=== PATIENT | female | born 1940 | race Caucasian/White ===

== ENCOUNTER 2020-10-15 15:54 | Inpatient (IN) | payer OTHER ==
[~2020-10-15] VITALS: Ht 152.4 cm; Wt 69.4 kg
[2020-10-15] MEDS ORDERED: COZAAR100 MG (16:07)
[2020-10-15] MEDS ORDERED: LEVOTHYROXINE25 MCG (16:08)
[2020-10-15] MEDS ORDERED: ELIQUIS5 MG (16:08)
[2020-10-15] MEDS ORDERED: CARVEDILOL25 MG (16:08)
[2020-10-15] MEDS ORDERED: CRESTOR20 MG (16:08)
[2020-10-15] MEDS ORDERED: RAYOS2 MG (16:09)
[2020-10-15] MEDS ORDERED: ISOSORBIDE MONO60 MG (16:09)
[2020-10-15] MEDS ORDERED: BUMEX 1 MG (16:09)
--- NOTE | 2020-10-15 16:10 | NUR ---
SE REDCIBE PTE ALERTA Y ORIENTADA X3,REFIERE TENER DOLOR ABDOMINAL,REFIERE QUE LE DIAGNOSTICARON PANCREATITIS.
--- NOTE | 2020-10-15 17:10 | NUR ---
MS JACKSONGO ORIENTA PTE SOBRE TX MEDICO EL CUAL REFIERE ENTENDER.SE LE EXTRAEN MUESTRAS BAJO MEDIDAS ASEPTICAS.SE CANALIZA Y SE ADMINISTRAN MEDICAMENTOS,SE NOTIFICA SONOGRAMA PENDIENTE.SE ORIENTA SOBRE DIETA NPO.
--- NOTE | 2020-10-15 22:25 | NUR ---
PACIENTE FEMINA DE 80 ANOS DE EDAD UBICADA EN AREA DE CHEST PAIN POR DOLOR ABDOMINAL Y FALLO RENAL. AL MOMENTO LA MISMA ESTA EN COMPANIA DE FAMILIAR. PACIENTE AMBULA SIN DIFICULTAD Y SE OBSERVA ESTABLE DENTRO DE QUIGLEY CONDICION. LA MISMA FUE MANEJADA POR ANIBAL DE EMERGENCIAS, SE LE REALIZARON MUESTRAS DE NANCY SONOGRAMA Y ADMINISTRACION DE MEDICAMENTOS. AL MOMENTO PACIENTE QUEDA PENDIENTE DE CONSULTA CON MEDICINA INTERNA, MUESTRA DE NANCY A LAS 6:00AM Y MONITOREO DEL ESTADO DE LA MISMA.
--- NOTE | 2020-10-15 23:43 | NUR ---
SE RECIBE PTE FEMRNINA ALERTA Y ORIENTADA X3,ACOMPANADA DE FAMILIAR,SE MANTIENE CONECTADA A MONITOR CARDIACO COINSTANTE Y OXIMETRIA CONTINUA,SE REALIZAN S/V,SE MANTIENE IVF PATENTE AREA NEDA DE EDEMA Y ENROJECIMIENTO, PENDIENTE A MUESTRAS NADYA LABORATORIO A REALIZARSE A LAS 6AM,SE MANTIENE EN OBSERVACION POR CAMBIOS.
--- NOTE | 2020-10-16 05:39 | NUR ---
SE LILIYA FLORES Y S ENVIAN A LABORATORIO
--- NOTE | 2020-10-16 07:36 | NUR ---
SE RECIBE PTE DEL TURNO ANTERIOR, ALERTA Y ORIENTADA X 3 ESFERAS, UBICADA EN CAMA NIVEL MAS BAJO, COHN DE IDENTIFICACION Y BARANDAS ELEVADAS POR PRECAUCION, CONECTADA A MONITOR CARDIACO Y OXIMETRIA DE PULSO. EN COMPANIA DE FAMILIAR. SE OBSERVA CON BUEN PATRON RESPIRATORIO, AL MOMENTO SATURANDO 96% JOSEY OXIMETRO DE PULSO. PIEL TIBIA AL TACTO. IV EN ANTEBRAZO LT #20 PATENTE Y NEDA DE EDEMA O ERITEMA. PENDIENTE A RE EVALUACION DEL DR E RUSSO. SE MANTIENE BAJO OBSERVACION, EN CAMA NIVEL MAS BAJO, CONECTADA A MONITOR CARDIACO Y OXIMETRIA DE PULSO.
--- NOTE | 2020-10-16 10:53 | NUR ---
SE OBSERVA PTE CON PULSO IRREGULQAR, SE REALIZA EKG Y SE NOTIFICA A DR E RUSSO.
[2020-11-01] MEDS ORDERED: CARVEDILOL25 MG PO (09:58)
[2020-11-01] MEDS ORDERED: ISOSORBIDE MONO30 MG PO (09:58)
[2020-11-01] MEDS ORDERED: LASIX20 MG PO (09:58)
[2020-11-01] MEDS ORDERED: ELIQUIS2.5 MG PO (09:58)
== END 2020-11-01 14:54 | disposition home or self-care (01) | DRG 438 ==
LOC: ER 15:54 → MEDJ 10-16 13:05
PROVIDERS: ADMIT Internal Medicine; ATTEND Internal Medicine
PROC: B24BZZZ Ultrasonography of Heart with Aorta (ICD-10-PCS; principal; 2020-10-16)
PROC: BW21ZZZ Computerized Tomography (CT Scan) of Abdomen and Pelvis (ICD-10-PCS; 2020-10-16)
PROC: BT43ZZZ Ultrasonography of Bilateral Kidneys (ICD-10-PCS; 2020-10-23)
DX: K85.80 Other acute pancreatitis without necrosis or infection (principal); N17.0 Acute kidney failure with tubular necrosis; K80.10 Calculus of gallbladder with chronic cholecystitis without obstruction; I48.20 Chronic atrial fibrillation, unspecified; I13.0 Hypertensive heart and chronic kidney disease with heart failure and stage 1 through stage 4 chronic kidney disease, or unspecified chronic kidney disease; I50.22 Chronic systolic (congestive) heart failure; I25.10 Atherosclerotic heart disease of native coronary artery without angina pectoris; E03.8 Other specified hypothyroidism; M35.3 Polymyalgia rheumatica; E87.5 Hyperkalemia; N18.9 Chronic kidney disease, unspecified; E86.0 Dehydration; Z79.01 Long term (current) use of anticoagulants; Z95.1 Presence of aortocoronary bypass graft; Z20.822 Contact with and (suspected) exposure to COVID-19; F41.8 Other specified anxiety disorders